=== PATIENT | female | born 1995 | race Caucasian/White ===

== ENCOUNTER 2021-02-16 21:35 | Emergency (ER) | payer OTHER ==
[~2021-02-16] VITALS: Ht 165.1 cm; Wt 77.6 kg
[2021-02-16] MEDS ORDERED: FOLIC ACID0.8 M1 (21:49)
[2021-02-16] MEDS ORDERED: PRENATABS FA T1 EACH (21:49)
[2021-02-16] MEDS ORDERED: LABETALOL HCL100 MG (21:49)
== END 2021-02-17 02:11 ==
LOC: ER 21:35
DX: O20.8 Other hemorrhage in early pregnancy (principal); Z3A.01 Less than 8 weeks gestation of pregnancy

== ENCOUNTER → 2021-04-04 | Outpatient (CLI) | payer OTHER ==
[~2021-04-04] MED LIST: FOLIC ACID0.8 M1; LABETALOL HCL100 MG; PRENATABS FA T1 EACH
== END | disposition home or self-care (01) ==
LOC: PRENATAL 13:37
PROVIDERS: ATTEND Obstetrics & Gynecology Maternal & Fetal Medicine
DX: O10.011 Pre-existing essential hypertension complicating pregnancy, first trimester (principal); O36.80X1 Pregnancy with inconclusive fetal viability, fetus 1; Z36.89 Encounter for other specified antenatal screening; Z3A.12 12 weeks gestation of pregnancy

== ENCOUNTER 2021-04-30 19:46 | Emergency (ER) | payer OTHER ==
[~2021-04-30] VITALS: Ht 165.1 cm; Wt 77.1 kg
== END 2021-04-30 22:24 | disposition home or self-care (01) ==
LOC: ER 19:46
DX: O16.2 Unspecified maternal hypertension, second trimester (principal); Z34.02 Encounter for supervision of normal first pregnancy, second trimester

== ENCOUNTER → 2021-05-30 | Outpatient (CLI) | payer OTHER ==
[~2021-05-30] MED LIST changes: +METFORMIN HCL500 M3 PO
== END | disposition home or self-care (01) ==
LOC: PRENATAL 08:00
PROVIDERS: ATTEND Obstetrics & Gynecology Maternal & Fetal Medicine
DX: O35.0XX1 Maternal care for (suspected) central nervous system malformation in fetus, fetus 1 (principal); O35.3XX1 Maternal care for (suspected) damage to fetus from viral disease in mother, fetus 1; O98.512 Other viral diseases complicating pregnancy, second trimester; O10.012 Pre-existing essential hypertension complicating pregnancy, second trimester; Z36.89 Encounter for other specified antenatal screening; Z3A.20 20 weeks gestation of pregnancy

== ENCOUNTER 2021-06-23 18:40 | Outpatient (CLI) | payer OTHER ==
[~2021-06-23 18:40] MED LIST changes: -METFORMIN HCL500 M3 PO
[2021-08-03] MEDS ORDERED: METFORMIN HCL500 M3 PO (10:47)
== END 2021-06-23 19:47 | disposition home or self-care (01) ==
LOC: NST 18:40
PROVIDERS: ATTEND Specialist
DX: Z34.82 Encounter for supervision of other normal pregnancy, second trimester (principal)

== ENCOUNTER 2021-07-26 09:15 | Outpatient (CLI) | payer OTHER ==
[2021-08-03] MEDS ORDERED: METFORMIN HCL500 M3 PO (10:47)
== END 2021-07-26 10:15 | disposition home or self-care (01) ==
LOC: PRENATAL 09:15
PROVIDERS: ATTEND Obstetrics & Gynecology Maternal & Fetal Medicine
DX: O26.843 Uterine size-date discrepancy, third trimester (principal); O10.013 Pre-existing essential hypertension complicating pregnancy, third trimester; O24.410 Gestational diabetes mellitus in pregnancy, diet controlled; Z36.89 Encounter for other specified antenatal screening; Z3A.29 29 weeks gestation of pregnancy

== ENCOUNTER 2021-09-16 13:54 | Outpatient (CLI) | payer OTHER ==
[~2021-09-16 13:54] MED LIST changes: +METFORMIN HCL500 M3 PO
[2021-09-16] MEDS ORDERED: IRON236 MG PO (14:05)
== END 2021-09-17 14:10 | disposition home or self-care (01) ==
LOC: OBS/DEL 13:54
PROVIDERS: ATTEND Student in an Organized Health Care Education/Training Program
DX: O14.13 Severe pre-eclampsia, third trimester (principal); O24.410 Gestational diabetes mellitus in pregnancy, diet controlled; O36.8130 Decreased fetal movements, third trimester, not applicable or unspecified; Z3A.36 36 weeks gestation of pregnancy

== ENCOUNTER 2021-09-20 09:20 | Outpatient (CLI) | payer OTHER ==
[~2021-09-20 09:20] MED LIST changes: +IRON236 MG PO
== END 2021-09-20 10:00 | disposition home or self-care (01) ==
LOC: PRENATAL 09:20
PROVIDERS: ATTEND Obstetrics & Gynecology Maternal & Fetal Medicine
DX: O26.843 Uterine size-date discrepancy, third trimester (principal); O10.013 Pre-existing essential hypertension complicating pregnancy, third trimester; O24.410 Gestational diabetes mellitus in pregnancy, diet controlled; O36.8131 Decreased fetal movements, third trimester, fetus 1; Z36.89 Encounter for other specified antenatal screening; Z3A.38 38 weeks gestation of pregnancy

== ENCOUNTER 2021-09-29 01:12 | Outpatient (CLI) | payer OTHER ==
[2021-09-29] MEDS ORDERED: FUSION PLUS CA1 EACH PO (03:29)
[2021-09-29] MEDS ORDERED: PEPCID AC20 MG PO (03:29)
== END 2021-09-29 14:38 | disposition home or self-care (01) ==
LOC: OBS/DEL 01:12
PROVIDERS: ATTEND Student in an Organized Health Care Education/Training Program
DX: O16.3 Unspecified maternal hypertension, third trimester (principal); O23.43 Unspecified infection of urinary tract in pregnancy, third trimester; Z3A.37 37 weeks gestation of pregnancy; Z20.822 Contact with and (suspected) exposure to COVID-19

== ENCOUNTER 2021-09-29 15:15 | Inpatient (IN) | payer OTHER ==
[~2021-09-29] VITALS: Ht 165.1 cm; Wt 3.2 kg
[~2021-09-29 15:15] MED LIST changes: +FUSION PLUS CA1 EACH PO; +PEPCID AC20 MG PO
== END 2021-10-06 15:24 | disposition home or self-care (01) | DRG 787 ==
LOC: OB/GYN 10-02 15:15 → SURG-SUITE 10-03 06:41 → LDR 10-03 06:41 → SURG-SUITE 10-04 00:44
PROVIDERS: ADMIT Student in an Organized Health Care Education/Training Program; ATTEND Student in an Organized Health Care Education/Training Program
PROC: 10907ZC Drainage of Amniotic Fluid, Therapeutic from Products of Conception, Via Natural or Artificial Opening (ICD-10-PCS; 2021-10-03)
PROC: 3E033VJ Introduction of Other Hormone into Peripheral Vein, Percutaneous Approach (ICD-10-PCS; 2021-10-03)
PROC: 4A1HXFZ Monitoring of Products of Conception, Cardiac Rhythm, External Approach (ICD-10-PCS; 2021-10-03)
PROC: 10D00Z1 Extraction of Products of Conception, Low, Open Approach (ICD-10-PCS; principal; 2021-10-03 22:15)
DX: O62.0 Primary inadequate contractions (principal); O10.02 Pre-existing essential hypertension complicating childbirth; O61.0 Failed medical induction of labor; Z53.29 Procedure and treatment not carried out because of patient's decision for other reasons; O24.425 Gestational diabetes mellitus in childbirth, controlled by oral hypoglycemic drugs; Z3A.38 38 weeks gestation of pregnancy; Z37.0 Single live birth